=== PATIENT | female | born 1935 | race Two or more races ===

== ENCOUNTER → 2024-05-26 | Emergency (ER) | payer OTHER ==
[~2024-05-26] VITALS: Ht 160 cm; Wt 68.0 kg
[~2024-05-26] MED LIST: ARICEPT5 MG PO; AVAPRO300 MG PO; CHILDREN'S ASPI81 MG PO; CLONIDINE HCL 0.1 MG TABLET PO ONE; DEXAMETHASONE SODIUM PHOSPHATE 4 MG/ML VIAL IV STA; HYDRALAZINE HCL25 MG PO; ISOSORBIDE DINI30 MG PO; LIPITOR80 MG PO; ORPHENADRINE CITRATE 30 MG/ML AMPUL IM STA; PLAVIX75 MG PO; SYNTHROID100 MCG PO; TOPROL XL50 M1 PO; ZETIA10 MG PO
[2024-05-26 18:02] LABS: HEMATOCRIT 33.9 % (36.0-45.00); MEAN CORPUSCULAR HEMOGLOBIN 28.6 pg (27.00-32.0); MEAN CORPUSCULAR HGB CONC 32.5 g/dl (32.0-36.0); PLATELET COUNT 187 K/uL (150-450); RED BLOOD COUNT 3.86 M/uL (4.00-6.00); RED CELL DISTRIBUTION WIDTH 15.7 % (11.5-14.5)
[2024-05-26 18:14] LABS: INR 1.04; PARTIAL THROMBOPLASTIN TIME 26.1 SECONDS (22.0-34.0); PROTHROMBIN TIME 11.3 SECONDS (9.0-11.5)
[2024-05-26 18:15] LABS: CALCIUM 9.8 mg/dL (8.5-10.1); CREATININE SERUM 1.12 mg/dL (0.55-1.02); GFR 45.8; POTASSIUM 4.52 mEq/L (3.5-5.1)
== END | disposition designated cancer center or children's hospital (05) ==
LOC: ER 11:47
PROVIDERS: General Practice
DX: S01.112A Laceration without foreign body of left eyelid and periocular area, initial encounter (principal); S05.12XA Contusion of eyeball and orbital tissues, left eye, initial encounter; W18.39XA Other fall on same level, initial encounter; Y93.89 Activity, other specified; Y92.018 Other place in single-family (private) house as the place of occurrence of the external cause; Y99.9 Unspecified external cause status; H05.232 Hemorrhage of left orbit; I10 Essential (primary) hypertension; F03.90 Unspecified dementia, unspecified severity, without behavioral disturbance, psychotic disturbance, mood disturbance, and anxiety
CPT/HCPCS: 12011; 36415; 70450; 70486; 72040; 72125; 93005; 96365; 99285; J1100; J2360